=== PATIENT | female | born 1975 | race Caucasian/White ===

== ENCOUNTER 2021-08-01 14:09 | Day surgery (SDC) | payer OTHER ==
[2021-08-01] MEDS ORDERED: Sodium Chloride 0.9(Preservative Free) 10 ML IJ ONE (14:10)
[2021-08-01] MEDS ORDERED: Decadron 4 MG INJ IV ONE (14:10)
[2021-08-01] MEDS ORDERED: Depo-Medrol 40 MG/ML IM ONE (14:10)
[2021-08-01] MEDS ORDERED: Xylocaine 1% Vial 30 ML PF IJ ONE (14:10)
[2021-08-01] MEDS ORDERED: DIPRIVAN 200 MG/20 ML IV ONE (17:09)
[2021-08-01] MEDS ORDERED: Lactated Ringers 1,000 ML IV ONE (17:30)
--- NOTE | 2021-08-02 07:17 | XRAY ---
Indication: Left piriformis muscle injection. Intraoperative fluoroscopy provided for 22 seconds. Single digital spot image submitted for interpretation demonstrates posterior needle tip projecting over the expected left piriformis muscle. Small amount of contrast injected for needle tip placement. Correlate with intraoperative findings/report.
--- NOTE | 2021-08-02 07:26 | XRAY ---
Indication: Left L4-S1 transforaminal VOLODYMYR. Intraoperative fluoroscopy provided for 24 seconds. 3 digital spot images submitted for interpretation demonstrates posterior needle tips projecting over the expected left L4 and L5 nerve roots. Small amount of contrast injected for needle tip placement. Correlate with intraoperative findings/report.
--- NOTE | 2021-08-02 10:20 | XRAY ---
24 seconds fluoroscopy time in surgery for left L4-S1 transforaminal VOLODYMYR.
--- NOTE | 2021-08-02 10:22 | XRAY ---
22 seconds fluoroscopy time in surgery for injection of the left piriformis muscle.
== END 2021-08-01 17:32 | disposition home or self-care (01) ==
LOC: SDC-PAIN 14:09
PROVIDERS: ATTEND Psychiatry & Neurology Pain Medicine
DX: M54.16 Radiculopathy, lumbar region (principal); M79.18 Myalgia, other site; F41.9 Anxiety disorder, unspecified; F32.9 Major depressive disorder, single episode, unspecified; M19.90 Unspecified osteoarthritis, unspecified site; I10 Essential (primary) hypertension; Z79.899 Other long term (current) drug therapy
CPT/HCPCS: 20552; 64483; 64484; 72020; 72100; 77002; 77003; J1030; J1100; J2001; J2704; Q9966

== ENCOUNTER 2022-07-17 13:04 | Day surgery (SDC) | payer OTHER ==
[2022-07-17] MEDS ORDERED: LIDOCAINE HCL 1% 50 MG/5 ML VL PF IJ ONE (13:05)
[2022-07-17] MEDS ORDERED: Depo-Medrol 40 MG/ML IM ONE (13:05)
[2022-07-17] MEDS ORDERED: Decadron 4 MG INJ IV ONE (13:05)
[2022-07-17] MEDS ORDERED: Sodium Chloride 0.9(Preservative Free) 10 ML IJ ONE (13:05)
[2022-07-17] MEDS ORDERED: DIPRIVAN 200 MG/20 ML IV ONE (15:51)
[2022-07-17] MEDS ORDERED: Lactated Ringers 1,000 ML IV ONE (16:44)
--- NOTE | 2022-07-17 17:01 | XRAY ---
Indication: Left L4-S1 transforaminal VOLODYMYR. Intraoperative fluoroscopy provided for 23 seconds. 4 digital spot images submitted for interpretation demonstrates posterior needle tips projecting over the expected left L4 and L5 nerve roots. Small amount of contrast injected for needle tip placement. Correlate with intraoperative findings/report.
--- NOTE | 2022-07-17 17:01 | XRAY ---
Indication: Left piriformis injection. Intraoperative fluoroscopy provided for 10 seconds. Single digital spot image submitted for interpretation demonstrates posterior needle tip projecting over the expected left piriformis muscle. Small amount of contrast injected for needle tip placement. Correlate with intraoperative findings/report.
--- NOTE | 2022-07-17 17:04 | XRAY ---
10 seconds of fluoroscopy was used in surgery for a left piriformis injection.
--- NOTE | 2022-07-17 17:04 | XRAY ---
23 seconds of fluoroscopy was used in surgery for a left L4-S1 transforaminal VOLODYMYR.
== END 2022-07-17 16:17 | disposition home or self-care (01) ==
LOC: SDC-PAIN 13:04
PROVIDERS: ATTEND Psychiatry & Neurology Pain Medicine
DX: M54.16 Radiculopathy, lumbar region (principal); M79.18 Myalgia, other site; Z79.899 Other long term (current) drug therapy
CPT/HCPCS: 20552; 64483; 64484; 72100; 72170; 77002; 77003; J1030; J1100; J2001; J2704; Q9966

== ENCOUNTER 2022-11-13 09:09 | Day surgery (SDC) | payer OTHER ==
[2022-11-13] MEDS ORDERED: Decadron 4 MG INJ IV ONE (09:10)
[2022-11-13] MEDS ORDERED: Sodium Chloride 0.9(Preservative Free) 10 ML IJ ONE (09:10)
[2022-11-13] MEDS ORDERED: LIDOCAINE HCL 1% 50 MG/5 ML VL PF IJ ONE (09:10)
[2022-11-13] MEDS ORDERED: Depo-Medrol 40 MG/ML IM ONE (09:10)
[2022-11-13] MEDS ORDERED: Zofran 4 MG/2 ML VIAL ONE (10:29)
[2022-11-13] MEDS ORDERED: DIPRIVAN 200 MG/20 ML IV ONE (10:29)
[2022-11-13] MEDS ORDERED: Lactated Ringers 1,000 ML IV ONE (13:17)
--- NOTE | 2022-11-13 14:37 | XRAY ---
Indication: Left L4-S1 transforaminal VOLODYMYR. Intraoperative fluoroscopy provided for 28 seconds. 4 digital spot image submitted for interpretation demonstrates posterior needle tips projecting over the expected left L4 and L5 nerve roots. Small amount of contrast injected for needle tip placement. Correlate with intraoperative findings/report.
--- NOTE | 2022-11-13 14:38 | XRAY ---
Indication: Left piriformis muscle injection. Intraoperative fluoroscopy provided for 9 seconds. 2 digital spot image submitted for interpretation demonstrates posterior needle tip projecting over the left piriformis muscle. Small amount of contrast injected for needle tip placement. Correlate with intraoperative findings/report.
--- NOTE | 2022-11-13 15:01 | XRAY ---
9 seconds fluoroscopy time in surgery for injection of the left piriformis muscle.
--- NOTE | 2022-11-13 15:01 | XRAY ---
28 seconds fluoroscopy time in surgery for left L4-S1 transforaminal VOLODYMYR.
== END 2022-11-13 11:00 | disposition home or self-care (01) ==
LOC: SDC-PAIN 09:09
PROVIDERS: ATTEND Psychiatry & Neurology Pain Medicine
DX: M54.16 Radiculopathy, lumbar region (principal); M79.18 Myalgia, other site; Z79.899 Other long term (current) drug therapy
CPT/HCPCS: 20552; 64483; 64484; 72100; 72170; 77002; 77003; J1030; J1100; J2001; J2405; J2704; Q9966

== ENCOUNTER 2023-07-09 06:27 | Day surgery (SDC) | payer OTHER ==
[2023-07-09] MEDS ORDERED: LIDOCAINE HCL 1% 50 MG/5 ML VL PF IJ ONE (06:28)
[2023-07-09] MEDS ORDERED: Sodium Chloride 0.9(Preservative Free) 10 ML IJ ONE (06:28)
[2023-07-09] MEDS ORDERED: DIPRIVAN 200 MG/20 ML IV ONE ×2 (07:25→07:43)
[2023-07-09] MEDS ORDERED: Lactated Ringers 1,000 ML IV ONE (09:08)
--- NOTE | 2023-07-09 12:06 | XRAY ---
Indication: Spinal cord stimulator trial. Intraoperative fluoroscopy provided for 1 minute 19 seconds. 9 digital spot image submitted for interpretation demonstrates introducer needle tip posterior to the L1. Single epidural lead inserted with tip terminating approximately T6. Correlate with intraoperative findings/report.
--- NOTE | 2023-07-09 12:10 | XRAY ---
One minute and 19 seconds of fluoroscopy was used in surgery for a spinal cord stimulator trial.
== END 2023-07-09 08:34 | disposition home or self-care (01) ==
LOC: SDC-PAIN 06:27
PROVIDERS: ATTEND Psychiatry & Neurology Pain Medicine
DX: M96.1 Postlaminectomy syndrome, not elsewhere classified (principal); E11.9 Type 2 diabetes mellitus without complications; Z79.899 Other long term (current) drug therapy
CPT/HCPCS: 01941; 63650; 72100; 77002; 82947; C1897; J2001; J2704

== ENCOUNTER 2025-08-24 07:34 | Day surgery (SDC) | payer OTHER ==
[2025-08-24] MEDS ORDERED: LIDOCAINE HCL 2% 100 MG/5 ML IJ ONE (07:35)
[2025-08-24] MEDS ORDERED: propofoL IV ONE (09:56)
--- NOTE | 2025-08-24 11:58 | XRAY ---
Indication: Bilateral L4-S1 MBB. Intraoperative fluoroscopy provided for 11 seconds. Single digital spot image submitted for interpretation demonstrates posterior needle tips projecting over expected left and right L4-S1 nerve roots. Correlate with intraoperative findings/report. Incidental incompletely visualized left epidural generator/leads.
--- NOTE | 2025-08-24 12:10 | XRAY ---
11 seconds of fluoroscopy was used in surgery for a bilateral L4-S1 MBB.
== END 2025-08-24 10:20 | disposition home or self-care (01) ==
LOC: SDC-PAIN 07:34
PROVIDERS: ATTEND Psychiatry & Neurology Pain Medicine
DX: M47.817 Spondylosis without myelopathy or radiculopathy, lumbosacral region (principal); R73.03 Prediabetes